=== PATIENT | male | born 1945 | race Caucasian/White ===

== ENCOUNTER 2021-03-16 01:58 | Day surgery (SDC) | payer MEDICARE, SELFPAY ==
[2021-03-01 15:53] VITALS: BMI 25.2
[2021-03-16 07:49] VITALS: BP 136/61; PULSE 60; RESP 18; TEMP 36.3; O2SAT 99
--- NOTE | 2021-03-16 08:04 | P.PNAN_ITS ---
Anes - Initial Pre Proc Eval Procedure: Operation Date: 03/16/21 08:30 Proposed Procedures p Esophagogastroduodenoscopy - Lorenzo Hector MD Date/Time: 03/16/21 08:04 Surgeon: Lorenzo Hector MD Pre Op Diagnosis: esophageal davidson, dysphagia Patient Data Age: 75 Gender: M Height: 1.7 m Weight: 73.2 kg Last Vital Signs Temp 36.3 C L 03/16/21 07:49 Pulse 60 03/16/21 07:49 Resp 18 03/16/21 07:49 BP 136/61 03/16/21 07:49 Pulse Ox 99 03/16/21 07:49 Allergies Allergy/AdvReac Type Severity Reaction Status Date / Time No Known Allergies Allergy Verified 03/16/21 07:48 Home Medications Medication Instructions Recorded Confirmed Type atorvastatin 10 mg PO DAILY 03/01/21 03/01/21 History donepezil 10 mg PO DAILY 03/01/21 03/01/21 History escitalopram oxalate 10 mg PO DAILY 03/01/21 03/01/21 History glucos sul [id number] 1 cap PO DAILY 03/01/21 03/01/21 History [Glucosamine Chondroitin] memantine 10 mg PO BID 03/01/21 03/01/21 History multivit with min-folic acid 1 tablet PO DAILY 03/01/21 03/01/21 History [Adult One Daily Multivitamin] nabumetone 750 mg PO BID 03/01/21 03/01/21 History olmesartan 20 mg PO DAILY 03/01/21 03/01/21 History omeprazole 20 mg PO DAILY 03/01/21 03/01/21 History Patient hx anesthesia problems: none Family hx anesthesia problems: none [facility] Past Medical History Medical History (Updated 03/16/21 @ 08:05 by Tres Rangel MD) Chronic GERD HTN (hypertension) Hyperlipidemia Social History Social History Smoking status: Never smoker Living arrangements: with family Spiritual care concerns: No Anes - Eval Final PreProcedure Day of Procedure 03/16/21 08:04 Patient weight: normal Heart: regular rate and rhythm Lungs: clear to auscultation and normal air movement Airway: Mallampati scale class II Neurological: alert and oriented Last oral intake: >/= 8 hours ASA classification: II Emergent: no Anesthetic plan: proceed Anesthesia type and monitoring: general GIVS Informed Consent: The patient's anesthetic plan and its attendant risks and benefits were discussed with the patient/family/POA. Questions were solicited and answers provided to the satisfaction of the patient/family/POA.
[2021-03-16] MEDS: LACTATED RINGERS 1,000 ML 150 ML IV CONT (08:11)
--- NOTE | 2021-03-16 08:25 | P.CONGI_ITS ---
Assessment and Plan Assessment and plan (1) Dysphagia: Code(s): R13.10 - Dysphagia, unspecified Status: Acute Assessment and Plan: Patient has difficulty swallowing large pieces of food. He is known to have esophageal web in the basis of acid reflux previously. Plan is for EGD to have evaluate for esophageal narrowing possible dilatation. Further recommendations will be given after endoscopy. (2) Chronic GERD: Code(s): K21.9 - Gastro-esophageal reflux disease without esophagitis Status: Acute Assessment and Plan: Patient has a history of GE reflux currently on omeprazole 20 mg p.o. daily with no current symptoms aside from dysphagia. He denies heartburn. Plan to reassess this at the time of EGD. GI Consult Note Consult date/time: 03/16/21 08:25 HPI: John Carrillo is a 75 year old male complains of dysphagia. Patient has a history of esophageal web dilated 2018. Patient reports recently has had food catching in the mid substernal portion of the chest. This happens most commonly with meat in solid large pieces of food. Patient denies any abdominal pain. He has had no heartburn. Family history is noncontributory. He has had esophageal web dilated in the past. Currently maintained on omeprazole 20 mg p.o. daily. patient denies any ongoing heartburn. Review of Systems Review of Systems: All systems reviewed & are unremarkable except as noted in HPI and below PMFSH Past Medical History Medical History (Updated 03/16/21 @ 08:26 by Lorenzo Hector MD) Chronic GERD HTN (hypertension) Hyperlipidemia Social History Social History Smoking status: Never smoker Living arrangements: with family Spiritual care concerns: No Meds Home Medications and Allergies Home Medications Medication Instructions Recorded Confirmed Type atorvastatin 10 mg PO DAILY 03/01/21 03/01/21 History donepezil 10 mg PO DAILY 03/01/21 03/01/21 History escitalopram oxalate 10 mg PO DAILY 03/01/21 03/01/21 History glucos sul [id number] 1 cap PO DAILY 03/01/21 03/01/21 History [Glucosamine Chondroitin] memantine 10 mg PO BID 03/01/21 03/01/21 History multivit with min-folic acid 1 tablet PO DAILY 03/01/21 03/01/21 History [Adult One Daily Multivitamin] nabumetone 750 mg PO BID 03/01/21 03/01/21 History olmesartan 20 mg PO DAILY 03/01/21 03/01/21 History omeprazole 20 mg PO DAILY 03/01/21 03/01/21 History Allergies Allergy/AdvReac Type Severity Reaction Status Date / Time No Known Allergies Allergy Verified 03/16/21 07:48 Vital Signs Vital Signs - 24 hr 03/16/21 07:49 Temperature 97.3 F L Pulse Rate 60 Respiratory Rate 18 Blood Pressure 136/61 Pulse Oximetry 99 Exam Narrative: physical exam reveals patient to be alert. Vital signs stable. HEENT exam is unremarkable. Patient is anicteric. Lungs are clear to auscultation and percussion. Heart is without murmur or extra sounds. Abdominal exam bowel sounds are present soft nontender with no hepatosp lenomegaly.
[2021-03-16] MEDS: BENZOCAINE (*SP) 60 ML SPRAY CAN (HURRICAINE) 1 SPRAY MUCOUS MEM (08:43)
[2021-03-16 08:54] VITALS: BP 111/65; PULSE 67; RESP 19; O2SAT 99
[2021-03-16 09:04] VITALS: BP 116/65; PULSE 61; RESP 13; O2SAT 95
[2021-03-16 09:14] VITALS: BP 120/67; PULSE 56; RESP 16; O2SAT 99
== END 2021-03-16 09:15 | disposition home or self-care (01) ==
PROVIDERS: PCP Family Medicine; Visit Provider Internal Medicine Gastroenterology
PROC: 0DJ08ZZ Inspection of Upper Intestinal Tract, Via Natural or Artificial Opening Endoscopic (ICD-10-PCS; CPT 43235; principal; 2021-03-16 08:30)
DX: Q39.4 Esophageal web (principal); K44.9 Diaphragmatic hernia without obstruction or gangrene; K21.9 Gastro-esophageal reflux disease without esophagitis; I10 Essential (primary) hypertension; E78.5 Hyperlipidemia, unspecified
CPT/HCPCS: 43450; 43235; J2704; J7120